=== PATIENT | female | born 1960 ===

== ENCOUNTER → 2023-07-06 09:51 | Outpatient (CLI) | payer OTHER ==
[2023-07-06 11:43] LABS: % SATURACION 39.8 % (15-50); ALBUMIN 3.8 gm/dL (3.4-5.0); BILIRUBIN TOTAL 0.72 mg/dL (0.3-1.2); CALCIUM 8.9 mg/dL (8.5-10.1); CREATININE SERUM 0.79 mg/dL (0.55-1.02); GFR 73.04; GLOBULINA 3.1 G/DL (2.4-3.5); POTASSIUM 3.46 mEq/L (3.5-5.1); TOTAL PROTEIN 6.9 gm/dL (6.4-8.2); TSH 3.22 uIU/mL (0.358-3.74)
[2023-07-06 12:12] LABS: FOLIC ACID 16.73 ng/ml (4.78-20)
[2023-07-06 14:59] LABS: HEMATOCRIT 46.2 % (36.0-45.00); HEMOGLOBIN 16.2 g/dL (12.0-15.00); MEAN CELL VOLUME 95.5 fL (80.00-100.00); MEAN CORPUSCULAR HEMOGLOBIN 33.4 pg (27.00-32.0); PLATELET COUNT 327 K/uL (150-450); RED BLOOD COUNT 4.83 M/uL (4.00-6.00); RED CELL DISTRIBUTION WIDTH 12.3 % (11.5-14.5)
[2023-07-06 15:02] LABS: MANUAL PLATELET COUNT 498
[2023-07-06 15:07] LABS: PLATELET ESTIMATE INCREASED (NORMAL)
[2023-07-07 10:12] LABS: ANTI THYROID PEROXIDASE < 9 IU/mL (0-34); CA 125 11.8 U/mL (0.0-38.1); CA 15-3 21.9 U/mL (0.0-25.0); CA 19-9 6 U/mL (0-35); TRANSFERIN 257 mg/dL (192-364)
== END | disposition home or self-care (01) ==
LOC: LAB 09:51
PROVIDERS: ATTEND Internal Medicine Hematology & Oncology
DX: D50.8 Other iron deficiency anemias (principal); I10 Essential (primary) hypertension; R74.02 Elevation of levels of lactic acid dehydrogenase [LDH]; K76.89 Other specified diseases of liver; D51.1 Vitamin B12 deficiency anemia due to selective vitamin B12 malabsorption with proteinuria; D51.0 Vitamin B12 deficiency anemia due to intrinsic factor deficiency; E03.8 Other specified hypothyroidism; E06.3 Autoimmune thyroiditis; C50.919 Malignant neoplasm of unspecified site of unspecified female breast; R97.8 Other abnormal tumor markers; C25.9 Malignant neoplasm of pancreas, unspecified; C56.9 Malignant neoplasm of unspecified ovary; R97.1 Elevated cancer antigen 125 [CA 125]; R79.9 Abnormal finding of blood chemistry, unspecified; D75.1 Secondary polycythemia; D75.9 Disease of blood and blood-forming organs, unspecified; D51.3 Other dietary vitamin B12 deficiency anemia; G62.9 Polyneuropathy, unspecified; G47.33 Obstructive sleep apnea (adult) (pediatric)

== ENCOUNTER 2025-01-24 08:45 | Inpatient (IN) | payer OTHER ==
[~2025-01-24] VITALS: Wt 60.8 kg
[2025-01-24 11:20] LABS: COVID-19 AG NEGATIVE (NEGATIVE)
[2025-01-24] MEDS ORDERED: NIACOR500 MG PO (11:25)
[2025-01-24] MEDS ORDERED: ARBLI10 MG/1 ML (11:25)
[2025-01-24] MEDS ORDERED: LIPITOR40 M1 (11:25)
[2025-01-24] MEDS ORDERED: XANAX0.25 MG (11:26)
[2025-01-24] MEDS ORDERED: B12 (11:27)
[2025-01-31] MEDS ORDERED: METRONIDAZOLE/SODIUM CHLORIDE 500 MG/100 ML PIGGYBACK IV ONE ×2 (11:33→21:45)
[2025-01-31] MEDS ORDERED: CEFAZOLIN SODIUM 1,000 MG VIAL ONE ×2 (11:34→18:48)
[2025-01-31] MEDS ORDERED: THROMBIN,HU/FIBRINOGEN/CALCIUM 4 ML SYRINGE TOP ONE (15:18)
[2025-01-31] MEDS ORDERED: VISTASEAL DUAL APPICATOR 1 EACH APPL TOP ONE (15:18)
[2025-01-31] MEDS ORDERED: SUGAMMADEX SODIUM 200 MG/2 ML VIAL IV ONE (16:01)
[2025-01-31] MEDS ORDERED: KETOROLAC TROMETHAMINE 30 MG VIAL IV ONE (16:15)
[2025-01-31] MEDS ORDERED: RINGERS SOLUTION,LACTATED 1,000 ML IV SCH (16:15)
[2025-01-31] MEDS ORDERED: OxyCODONE HCL 5 MG TABLET (ROXICODONE) PO PRN (16:15)
[2025-01-31] MEDS ORDERED: SIMETHICONE 125 MG CAPSULE PO SCH (17:00)
[2025-01-31] MEDS ORDERED: METOCLOPRAMIDE HCL 5 MG/ML VIAL IV SCH (17:00)
[2025-01-31] MEDS ORDERED: CEFAZOLIN SODIUM 1,000 MG VIAL IV SCH (17:00)
[2025-01-31] MEDS ORDERED: ONDANSETRON HCL 2 MG/ML VIAL ONE (17:35)
[2025-01-31] MEDS ORDERED: ACETAMINOPHEN 500 MG GEL..CAP PO SCH (18:00)
[2025-01-31] MEDS ORDERED: METOCLOPRAMIDE HCL 5 MG/ML VIAL ONE ×2 (18:48→23:55)
[2025-01-31] MEDS ORDERED: GABAPENTIN 300 MG CAPSULE PO ONE (20:17)
[2025-01-31] MEDS ORDERED: FAMOTIDINE/PF 20 MG/2 ML VIAL ONE (20:17)
[2025-01-31] MEDS ORDERED: SIMETHICONE 125 MG CAPSULE PO ONE (20:17)
[2025-01-31] MEDS ORDERED: CELECOXIB 200 MG CAPSULE PO SCH (21:00)
[2025-01-31] MEDS ORDERED: GABAPENTIN 300 MG CAPSULE PO SCH (21:00)
[2025-01-31] MEDS ORDERED: FAMOTIDINE/PF 20 MG/2 ML VIAL IV PUSH SCH (21:00)
[2025-01-31] MEDS ORDERED: DOCUSATE SODIUM 100MG CAP PO SCH (21:00)
[2025-01-31 21:10] LABS: BASO % 0.3 % (0.1-1.2); EOS # 0.01 (0.04-0.54); EOS % 0.1 % (0.7-7.0); LYMPH # 0.94 (1.18-3.74); LYMPH % 6.9 % (19.3-53.1); MEAN PLATELET VOLUME 8.80 fl (9.4-12.4); MONO # 0.72 (0.24-0.82); MONO % 5.3 % (4.7-12.5); NEUT # 11.92 (1.56-6.13); NEUT % 87.1 % (34.0-71.1); RED CELL DISTRIBUTION WIDTH 11.5 % (11.6-14.4)
[2025-01-31 21:41] LABS: BUN CREA RATIO 16.0 (7.0-25.0); CREATININE SERUM 0.56 mg/dL (0.55-1.02); GFR 108.31; GLUCOSE FASTING 88.0 mg/dL (65-100); OSMOLALITY SERUM 283.0 MOSM/KG (275-295)
[2025-01-31] MEDS ORDERED: CEFAZOLIN SODIUM 1,000 MG VIAL IV ONE (21:45)
[2025-02-01] MEDS ORDERED: ACETAMINOPHEN 500 MG GEL..CAP PO ONE (00:04)
[2025-02-01 01:20] VITALS: BP 101/62
[2025-02-01 04:17] LABS: BASO % 0.2 % (0.1-1.2); EOS # 0.02 (0.04-0.54); EOS % 0.2 % (0.7-7.0); LYMPH # 0.98 (1.18-3.74); LYMPH % 11.4 % (19.3-53.1); MEAN PLATELET VOLUME 8.80 fl (9.4-12.4); MONO # 0.61 (0.24-0.82); MONO % 7.1 % (4.7-12.5); NEUT # 6.93 (1.56-6.13); NEUT % 80.9 % (34.0-71.1); RED CELL DISTRIBUTION WIDTH 11.5 % (11.6-14.4)
[2025-02-01 04:49] LABS: BUN CREA RATIO 12.0 (7.0-25.0); CREATININE SERUM 0.67 mg/dL (0.55-1.02); GFR 88.06; GLUCOSE FASTING 87.0 mg/dL (65-100); OSMOLALITY SERUM 283.0 MOSM/KG (275-295)
[2025-02-01 08:08] VITALS: BP 119/76; O2SAT 97
[2025-02-01] MEDS ORDERED: ENOXAPARIN SODIUM 40 MG/0.4 ML SYRINGE SUBCUTANEO SCH (09:00)
== END 2025-02-01 13:43 | disposition home or self-care (01) | DRG 743 ==
LOC: SURH 01-31 08:45 → O/R 01-31 10:00 → SURH 01-31 10:00 → OB/GYN 01-31 20:10
PROVIDERS: Obstetrics & Gynecology; ADMIT Obstetrics & Gynecology Gynecologic Oncology; ATTEND Obstetrics & Gynecology Gynecologic Oncology
PROC: 0UT24ZZ Resection of Bilateral Ovaries, Percutaneous Endoscopic Approach (ICD-10-PCS; 2025-01-31)
PROC: 0UT74ZZ Resection of Bilateral Fallopian Tubes, Percutaneous Endoscopic Approach (ICD-10-PCS; 2025-01-31)
PROC: 8E0W4CZ Robotic Assisted Procedure of Trunk Region, Percutaneous Endoscopic Approach (ICD-10-PCS; 2025-01-31)
PROC: 0UT94ZZ Resection of Uterus, Percutaneous Endoscopic Approach (ICD-10-PCS; principal; 2025-01-31 10:00)
DX: D25.2 Subserosal leiomyoma of uterus (principal); D27.1 Benign neoplasm of left ovary; Z15.01 Genetic susceptibility to malignant neoplasm of breast
CPT/HCPCS: 58571; S2900